=== PATIENT | male | born 1990 | race Caucasian/White ===

== ENCOUNTER 2017-11-14 19:43 | Emergency (ER) | payer BC ==
[~2017-11-14] VITALS: Ht 182.9 cm; Wt 79.4 kg
--- OUTSIDE RECORDS SUMMARY | 2017-11-14 19:48 | XMS REPORT | Continuity of Care Document ---
Author Author [facility] Organization [facility] Address Unknown Phone Unavailable Allergies There is no data. Medications There is no data. Problems Date Dx Coded Attending Type Code Diagnosis Diagnosed By 03/18/2015 ADEBAYO DELANEY Ot 719.47 03/18/2015 ADEBAYO DELANEY Ot 959.7 03/18/2015 ADEBAYO DELANEY Ot E000.8 03/18/2015 ADEBAYO DELANEY Ot E006.0 03/18/2015 ADEBAYO DELANEY Ot E849.0 03/18/2015 ADEBAYO DELANEY Ot E928.9 Procedures There is no data. Results There is no data. Encounters ACCT No. Visit Date/Time Discharge Status Pt. Type Provider Facility Loc./Unit Complaint [id number] 03/02/2015 14:35:00 03/02/2015 23:59:59 CLS Outpatient ADEBAYO DELANEY [facility] RAD [id number] 11/14/2017 19:45:00 ACT Emergency KRISS HILL, ARCHIE Hernandez [facility] ER R SHOULDER INJ/PAIN
--- OUTSIDE RECORDS SUMMARY | 2017-11-14 19:48 | XMS REPORT ---
Author Author MARISELA MALONEY [employer] Address Unknown Phone Unavailable Care Team Providers Care Environmental Geologist Name Role Phone MARISELA MALONEY CP Unavailable Allergies, Adverse Reactions, Alerts Substance Reaction Event Type N.K.D.A. Info Not Available Non Drug Allergy Problems Problem Type Condition Code Onset Dates Condition Status Problem Anxiety disorder, unspecified F41.9 Active Assessment Anxiety F41.9 Active Problem Unspecified mood [affective] disorder F39 Active Assessment Mood disorder F39 Active Medications Medication Code System Code Instructions Start Date End Date Status Dosage Latuda [facility] [address]-27 20 MG Orally Once a day Sep 01, 2015 1 tablet BusPIRone HCl [facility] [address]-13 10 MG Orally Twice a day Sep 01, 2015 1 tablet Procedures Procedure Coding System Code Date Office Visit, Est Pt., Level 3 CPT-4 73527 Sep 01, 2015 Vital Signs Date/Time: Sep 01, 2015 Temperature 98.1 F Weight 192.0 lbs Height 70 in BMI 27.55 Index Blood Pressure Diastolic 70 mmHg Blood Pressure Systolic 116 mmHg Cardiac Monitoring Heart Rate 84 bpm Results No Known Results Summary Purpose [employer] Submission
--- OUTSIDE RECORDS SUMMARY | 2017-11-14 19:48 | XMS REPORT ---
Author Author MALCOLM JIMENEZ Organization [employer] Address Unknown Phone Unavailable Care Team Providers Care Activity Director Name Role Phone MALCOLM JIMENEZ CP Unavailable Allergies No Known Allergies Problems Problem Type Condition Code Onset Dates Condition Status Problem Anxiety disorder, unspecified F41.9 Active Assessment Unspecified mood [affective] disorder F39 Active Problem Unspecified mood [affective] disorder F39 Active Assessment Anxiety disorder, unspecified F41.9 Active Medications No Known Medications Procedures Procedure Coding System Code Date Psych diagnostic evaluation, new patient CPT-4 46760 Sep 01, 2015 Results No Known Results Summary Purpose [employer] Submission
--- NOTE | 2017-11-14 20:10 | ED Fall/Injury ---
General Chief Complaint: Upper Extremity Stated Complaint: R SHOULDER INJ/PAIN Nursing Triage Note: right shoulder pain after skating injury Source: patient Exam Limitations: no limitations History of Present Illness Date Seen by Provider: Nov 14, 2017 Time Seen by Provider: 19:47 Initial Comments This 27-year-old young man presents to emergency room with right shoulder injury. He was at a skateboard park and fell onto his right shoulder with an impact slightly posterior. He had to drive from [place] to [place] with a manual transmission. He is somewhat in distress holding his right arm with his left hand upon arrival. He is able to raise his right arm about 90 actively. He has no significant injury distal to the shoulder. He denies any other injuries. He has history of prior injury to the right shoulder for which he has seen Dr. Barker. Allergies and Home Medications Allergies Coded Allergies: No Known Drug Allergies (Unverified , 11/14/17) Home Medications Tramadol HCl 50 Mg Tablet, 50 MG PO Q6H PRN for PAIN-MODERATE TO SEVERE Prescribed by: ARCHIE ODELL on 11/14/172024 Patient Home Medication List Home Medication List Reviewed: Yes Constitutional: no symptoms reported Eyes: No Symptoms Reported Ears, Nose, Mouth, Throat: no symptoms reported Respiratory: no symptoms reported Cardiovascular: no symptoms reported Gastrointestinal: no symptoms reported Genitourinary: no symptoms reported Musculoskeletal: see HPI Skin: no symptoms reported Psychiatric/Neurological: No Symptoms Reported Past Hednwyf-Ueiwzn-Ruxirr Hx Patient Social History Alcohol Use: Denies Use Recreational Drug Use: Yes Drug of Choice: cannibus Smoking Status: Former Smoker Type Used: Cigarettes Former Smoker, Quit: Apr 08, 2017 2nd Hand Smoke Exposure: Yes Recent Foreign Travel: No Contact w/Someone Who Travel: No Recent Infectious Disease Expo: No Recent Hopitalizations: No Immunizations Up To Date Tetanus Booster (TDap): Unknown Seasonal Allergies Seasonal Allergies: No Surgeries History of Surgeries: Yes (wrist/back) Surgeries: Orthopedic Respiratory History of Respiratory Disorde: No Cardiovascular History of Cardiac Disorders: No Neurological History of Neurological Disord: No Genitourinary History of Genitourinary Disor: No Gastrointestinal History of Gastrointestinal Di: No Musculoskeletal History of Musculoskeletal Dis: No Endocrine History of Endocrine Disorders: No HEENT History of HEENT Disorders: No Cancer History of Cancer: No Psychosocial History of Psychiatric Problem: No Integumentary History of Skin or Integumenta: No Blood Transfusions History of Blood Disorders: No Physical Exam Vital Signs Vital Signs - First Documented 11/14/17 19:45 Temp 98.3 Pulse 81 Resp 18 B/P (MAP) 129/64 (85) Pulse Ox 100 O2 Delivery Room Air Capillary Refill : Less Than 3 Seconds General Appearance: WD/WN, no apparent distress HEENT: normal ENT inspection Neck: normal inspection Cardiovascular: regular rate, rhythm, no edema, no murmur Respiratory: lungs clear, normal breath sounds, no respiratory distress, no accessory muscle use Extremities: normal inspection, other (I'll right shoulder tenderness. Range of motion limited but patient is able to abduct the shoulder to about 90. There is a small abrasion near the elbow. Range of motion is normal distal to the shoulder. Radial pulses strong. Rodbuster is normal. Sensation intact.) Neurologic/Psychiatric: global technical writer II-XII nml as tested, no motor/sensory deficits, alert, normal mood/affect, oriented x 3 Skin: normal color, warm/dry Willian Coma Score Best Eye Response: (4) Open Spontaneously Best Verbal Response: (5) Oriented Best Motor Response: (6) Obeys Commands [place] Total: 15 Progress/Results/Core Measures Results/Orders My Orders Orders - ARCHIE MONTERROSO MD Shoulder, Right, 3 Views (11/14/17 19:52) Vital Signs/I&O Vital Sign - Last 12Hours 11/14/17 19:45 Temp 98.3 Pulse 81 Resp 18 B/P (MAP) 129/64 (85) Pulse Ox 100 O2 Delivery Room Air Blood Pressure Mean: 85 Diagnostic Imaging Diagonstic Imaging: Xray Plain Films/CT/US/NM/MRI: other (right shoulder) Comments Right shoulder x-ray viewed by me and report reviewed. See report below: NAME: CHAYA MÉNDEZ J MED REC#: [id number] PT STATUS: REG ER : 1990 PHYSICIAN: ARCHIE MONTERROSO MD ADMIT DATE: 11/14/17/ER Signed Date of Exam: 11/14/17 SHOULDER, RIGHT, 3 VIEWS INDICATION: Fell off a skateboard onto shoulder. Pain. EXAMINATION: Right shoulder, 10/17/2009. FINDINGS: Three views of the right shoulder. There is no evidence for an acute fracture or dislocation. The joint spaces are well maintained. There is no significant soft tissue swelling. IMPRESSION: No acute process. Dictated by: Dictated on workstation # [id number] Dict: 11/14/172005 Trans: 11/14/172012 Interpreted by: GREG NIXON MD Electronically signed by: GREG NIXON MD 11/14/172012 Departure Impression Impression: Primary Impression: Shoulder injury Qualified Codes: S49.91XA - Unspecified injury of right shoulder and upper arm , initial encounter Disposition: HOME, SELF-CARE Condition: Stable Departure-Patient Inst. Decision time for Depature: 20:21 Referrals: NO,LOCAL PHYSICIAN (PCP) Primary Care Physician JOSEPH BARKER MD Patient Instructions: Rotator Cuff Injury, How to Use a Shoulder Sling Add. Discharge Instructions: Use your sling for comfort as needed. Gradually increase level of activity as tolerated. Use ibuprofen up to 600 mg every 6 hours as needed for primary pain trial. Add Tylenol (acetaminophen) up to 1000 mg every 6 hours as needed for additional pain relief. For more severe breakthrough pain you may use the Ultram (tramadol) as prescribed. Ice in 20 minute intervals as needed for the first couple of days. Follow up with Dr. Barker if not improving after a couple of days. All discharge instructions reviewed with patient and/or family. Voiced understanding. Scripts Tramadol HCl (Ultram) 50 Mg Tablet 50 MG PO Q6H Y for PAIN-MODERATE TO SEVERE, #8 TAB Prov: ARCHIE MONTERROSO MD 11/14/17 ARCHIE MONTERROSO MD Nov 14, 2017 20:10
[2017-11-14] MEDS ORDERED: TRAM-42 PO (20:25)
[2017-11-14 20:32] VITALS: BP 129/64
== END 2017-11-14 20:30 | disposition home or self-care (01) ==
LOC: EDUNIT# 19:43 → ER 19:45
DX: S49.91XA Unspecified injury of right shoulder and upper arm, initial encounter (principal); F12.90 Cannabis use, unspecified, uncomplicated; Z87.891 Personal history of nicotine dependence; Z98.890 Other specified postprocedural states; V00.131A Fall from skateboard, initial encounter
CPT/HCPCS: 73030